=== PATIENT | male | born 1965 | race Caucasian/White ===

== ENCOUNTER 2022-04-17 20:35 | Emergency (ER) | payer OTHER, SELFPAY ==
[2022-04-17 22:00] VITALS: BP 189/116; PULSE 77; RESP 16; O2SAT 96; BMI 32.1
== END 2022-04-18 01:39 | disposition left against medical advice (07) ==
PROVIDERS: Emergency Provider Emergency Medicine
DX: H54.7 Unspecified visual loss (principal)
CPT/HCPCS: 99282